=== PATIENT | male | born 1935 | race Caucasian/White ===

== ENCOUNTER 2016-12-04 15:28 | Outpatient (CLI) | payer MEDICARE, OTHER ==
[2016-12-04 15:52] LABS: Bilirubin Negative (Negative); Blood, Urine Negative (Negative); Clarity Clear (Clear); Glucose, Urine (Dipstick) Negative (Negative); Leukocyte Negative (Negative); Nitrite Negative (Negative); Protein, Urine (Dipstick) Negative (Neg-Trace); Urobilinogen 0.2 mg/dL (0.2-1.0); pH, Urine 5.5 (5.0-9.0)
[2016-12-04 15:56] LABS: Bacteria/HPF None Seen HPF (None Seen); RBC/HPF None Seen HPF (0-3); Squamous Epithelial 0-3 HPF (0-3); WBC/HPF None Seen HPF (0-3)
[2016-12-04 15:57] LABS: Other Microscopic Description C&S SET UP
== END 2016-12-04 15:29 | disposition home or self-care (01) ==
LOC: MADLABBHPM 15:28
PROVIDERS: ATTEND Family Medicine
DX: R32 Unspecified urinary incontinence (principal)
CPT/HCPCS: 81001; 87086

== ENCOUNTER 2017-01-24 11:38 | Outpatient (CLI) | payer MEDICARE, OTHER ==
[2017-01-24 12:26] LABS: ALT (SGPT) 30 U/L (0-55); AST (SGOT) 21 U/L (5-34); Albumin 3.7 g/dL (3.4-4.8); Alkaline Phosphatase 138 U/L (40-150); Anion Gap 11 mmol/L (10-20); BUN (Urea Nitrogen) 13 mg/dL (8.4-25.7); Bilirubin, Direct 0.2 mg/dL (0.1-0.3); Bilirubin, Total 0.3 mg/dL (0.2-1.2); Calc. Creatinine Clearance 0 mL/min (70-130); Carbon Dioxide 26 mmol/L (23-31); Cardiac Risk 4.4 (Less than 4.5); Chloride 108 mmol/L (98-107); Cholesterol 110 mg/dL (< 200 Desired); Estimated GFR-MDRD 86; Globulin 2.5 g/dL (2.4-3.5); Glucose 99 mg/dL (83-110); HDL Cholesterol 25 mg/dL (>60 Neg Risk); LDL Cholesterol, Calculated 56 mg/dL; Potassium 4.1 mmol/L (3.5-5.1); Protein, Total 6.2 g/dL (5.8-8.1); Sodium 141 mmol/L (136-145); Triglycerides 147 mg/dL (Less than 150)
[2017-01-24 12:40] LABS: #Basophils 0.1 thou/uL (0.0-0.2); #Eosinphils 0.2 thou/uL (0.0-0.7); #Lymphocytes 2.2 thou/uL (1.20-3.40); #Monocytes 0.4 thou/uL (0.11-0.59); #Neutrophils 4.7 thou/uL (1.40-6.50); %Basophils 0.9 % (0.0-1.0); %Eosinophils 2.9 % (0.0-10.0); %Lymphocytes 28.6 % (21.0-51.0); %Monocytes 5.8 % (0.0-10.0); %Neutrophils 61.8 % (42.0-75.0); Hemoglobin 15.7 g/dL (14.0-18.0); Mean Corpuscular HGB CONC 34.2 g/dL (32.0-36.0); Mean Corpuscular Hemoglobin 32.5 pg (27.0-31.0); Mean Corpuscular Volume 95.1 fl (80.0-94.0); Mean Platelet Volume 8.9 fL (7.4-10.4); Platelet Count 176 thou/uL (130-400); RBC Distribution Width 12.1 % (11.5-14.5); Red Blood Cell (RBC) Count 4.84 mill/uL (4.70-6.10); White Blood Cell (WBC) Count 7.5 thou/uL (4.8-10.8)
== END 2017-01-24 11:39 | disposition home or self-care (01) ==
LOC: MADLABBHPM 11:38
PROVIDERS: ATTEND Internal Medicine Cardiovascular Disease
DX: I62.9 Nontraumatic intracranial hemorrhage, unspecified (principal); I10 Essential (primary) hypertension; F01.50 Vascular dementia, unspecified severity, without behavioral disturbance, psychotic disturbance, mood disturbance, and anxiety; E78.5 Hyperlipidemia, unspecified
CPT/HCPCS: 36415; 80053; 80061; 80185; 82248; 84443; 85025

== ENCOUNTER 2018-04-02 12:05 | Outpatient (CLI) | payer MEDICARE, BC ==
--- NOTE | 2018-04-02 14:00 | CT ---
BRAIN CT WITHOUT IV CONTRAST: History: 82-year-old male with history of headache. History of a fall last week. History of stroke 12 years ag o. Comparison: 05-13-07 FINDINGS: Post-operative left craniotomy change. Extensive encephalomalacia and marked brain volume loss involv ing the left temporal and anterior parietal lobe regions. There is marked atrophy and chronic white m atter ischemic change. There is no focal mass or midline shift. No acute hemorrhage. Sinuses and mast oids are clear. IMPRESSION: Large area of encephalomalacia involving the left temporal and parietal lobes with associated brain v olume loss. Marked atrophy and chronic white matter ischemic change. No mass or bleed. No acute intra cranial process. POS: [facility]
== END 2018-04-02 12:06 | disposition home or self-care (01) ==
LOC: MADCT 12:05
PROVIDERS: ATTEND Family Medicine
DX: R51 Headache (principal); G93.89 Other specified disorders of brain; G31.9 Degenerative disease of nervous system, unspecified; I67.82 Cerebral ischemia; W19.XXXA Unspecified fall, initial encounter
CPT/HCPCS: 70450

== ENCOUNTER 2018-11-21 13:16 | Emergency (ER) | payer MEDICARE, BC ==
[2018-11-21 14:56] LABS: #Basophils 0.1 thou/uL (0.0-0.2); #Eosinphils 0.2 thou/uL (0.0-0.7); #Lymphocytes 1.9 thou/uL (1.20-3.40); #Monocytes 0.6 thou/uL (0.11-0.59); %Basophils 1.2 % (0.0-1.0); %Eosinophils 2.3 % (0.0-10.0); %Lymphocytes 22.1 % (21.0-51.0); %Monocytes 6.5 % (0.0-10.0); Hemoglobin 15.8 g/dL (14.0-18.0); Mean Corpuscular HGB CONC 32.3 g/dL (32.0-36.0); Mean Corpuscular Hemoglobin 31.1 pg (27.0-31.0); Mean Corpuscular Volume 96.3 fL (78.0-98.0); Mean Platelet Volume 8.8 fL (7.4-10.4); Platelet Count 237 thou/uL (130-400); RBC Distribution Width 11.9 % (11.5-14.5); Red Blood Cell (RBC) Count 5.09 mill/uL (4.70-6.10); White Blood Cell (WBC) Count 8.8 thou/uL (4.8-10.8)
[2018-11-21 15:10] LABS: ALT (SGPT) 20 U/L (8-55); AST (SGOT) 15 U/L (5-34); Albumin 3.9 g/dL (3.4-4.8); Alkaline Phosphatase 133 U/L (40-150); Anion Gap 11 mmol/L (10-20); BUN (Urea Nitrogen) 12 mg/dL (8.4-25.7); Bilirubin, Total 0.4 mg/dL (0.2-1.2); Calc. Creatinine Clearance 0 mL/min (70-130); Calcium 9.6 mg/dL (7.8-10.44); Carbon Dioxide 28 mmol/L (23-31); Chloride 107 mmol/L (98-107); Estimated GFR-MDRD 87; Globulin 2.8 g/dL (2.4-3.5); Glucose 100 mg/dL (83-110); Potassium 4.5 mmol/L (3.5-5.1); Protein, Total 6.7 g/dL (5.8-8.1); Sodium 141 mmol/L (136-145)
--- NOTE | 2018-11-21 15:18 | CT ---
CT HEAD NONCONTRAST: Date: 11/21/18 COMPARISON: 04/02/18. INDICATION: History of prior stroke. Altered mental status. Difficulty with mobility. FINDINGS: There is a large region of encephalomalacia redemonstrated, centered at the left temporal lobe. There is moderate to severe chronic microvascular ischemic disease. There are lacunar infarctions at each basal ganglia. Evidence of prior craniotomy is seen at the left calvarium. IMPRESSION: 1. No acute intracranial hemorrhage or mass effect. 2. Large region of encephalomalacia superimposed moderate to severe chronic ischemic disease, as wel l as scattered lacunar infarctions. POS: [facility]
[2018-11-21 15:30] LABS: Bilirubin Negative (Negative); Blood, Urine Small (Negative); Clarity Clear (Clear); Glucose, Urine (Dipstick) Negative (Negative); Leukocyte Negative (Negative); Nitrite Negative (Negative); Protein, Urine (Dipstick) Negative (Neg-Trace)
[2018-11-21 15:34] LABS: Bacteria/HPF Rare-Few HPF (None Seen); Squamous Epithelial 0-3 HPF (0-3); Transitional Epithelial 0-3 HPF (0-3); WBC/HPF None Seen HPF (0-3)
== END 2018-11-21 16:15 | disposition home or self-care (01) ==
LOC: MADERS 13:16
DX: R53.1 Weakness (principal); I25.2 Old myocardial infarction; G20 Parkinson's disease; I10 Essential (primary) hypertension; E78.00 Pure hypercholesterolemia, unspecified; Z79.899 Other long term (current) drug therapy
CPT/HCPCS: 36415; 51701; 70450; 80053; 81003; 81015; 84443; 84484; 85025; 87086; 93005